=== PATIENT | female | born 1995 | race African-American/Black ===

== ENCOUNTER 2019-11-06 07:41 | Emergency (ER) | payer SELFPAY ==
[~2019-11-06] VITALS: Ht 160 cm; Wt 65.7 kg
[2019-11-06 08:01] VITALS: BP 125/82
== END 2019-11-06 09:38 | disposition home or self-care (01) ==
LOC: ER 07:41
DX: K64.8 Other hemorrhoids (principal)
CPT/HCPCS: 99283